=== PATIENT | female | born 1995 | race Caucasian/White ===

== ENCOUNTER 2022-10-10 12:09 | Emergency (ER) | payer BC ==
[2022-10-10] MEDS ORDERED: Levofloxacin 250 MG Tab PO ONE (16:41)
[2022-10-10 17:41] VITALS: BP 105/74; PULSE 74
== END 2022-10-10 17:20 | disposition home or self-care (01) ==
LOC: JD.ED 12:09
DX: K52.9 Noninfective gastroenteritis and colitis, unspecified (principal); Z88.0 Allergy status to penicillin
CPT/HCPCS: 74176; 81001; 99284; A9270